=== PATIENT | female | born 1945 | race Caucasian/White ===

== ENCOUNTER 2019-11-08 10:42 | Emergency (ER) | payer OTHER ==
[~2019-11-08] VITALS: Ht 157.5 cm; Wt 104.3 kg
[~2019-11-08 10:42] MED LIST: AMOX1TAB5 PO; COZAAR25 MG; FIRST-OMEPR2 MG/1 ML; PERCOCET 5/3251 TAB PO; SIMVASTATIN40 MG
[2019-11-08] MEDS ORDERED: XARELTO20 MG (10:53)
== END 2019-11-08 16:54 | disposition home or self-care (01) ==
LOC: ER 10:42
DX: B34.9 Viral infection, unspecified (principal); Z20.828 Contact with and (suspected) exposure to other viral communicable diseases

== ENCOUNTER 2021-05-16 14:17 | Outpatient (CLI) | payer OTHER ==
[~2021-05-16 14:17] MED LIST changes: +XARELTO20 MG
== END 2021-05-16 14:30 | disposition home or self-care (01) ==
LOC: NUCLEAR 14:17
PROVIDERS: ATTEND Internal Medicine
DX: M81.0 Age-related osteoporosis without current pathological fracture (principal)

== ENCOUNTER 2021-07-04 07:37 | Outpatient (CLI) | payer OTHER | END 2021-07-04 07:38 | disposition home or self-care (01) | LOC: NUCLEAR 07:37 | PROVIDERS: ATTEND Internal Medicine | DX: I20.9 Angina pectoris, unspecified (principal); Z88.6 Allergy status to analgesic agent | CPT/HCPCS: 78452; 93017; A9500; J0153 ==

== ENCOUNTER 2021-07-17 08:15 | Outpatient (CLI) | payer OTHER | END 2021-07-17 08:27 | disposition home or self-care (01) | LOC: SONOGRAMA 08:15 | PROVIDERS: ATTEND Internal Medicine | DX: M25.511 Pain in right shoulder (principal) ==

== ENCOUNTER 2021-12-30 07:27 | Inpatient (IN) | payer OTHER ==
[~2021-12-30] VITALS: Ht 162.6 cm; Wt 115.7 kg
[2021-12-30] MEDS ORDERED: PANTOPRAZOLE SO40 MG PO (07:39)
[2021-12-30] MEDS ORDERED: ROSUVASTATIN CA10 MG PO (07:39)
[2021-12-30] MEDS ORDERED: TOPROL XL25 M1 PO (07:39)
[2021-12-30] MEDS ORDERED: PEPCID AC20 MG PO (07:39)
--- NOTE | 2021-12-30 07:43 | NUR ---
SE RECIBE PTE ALERTA Y ORIENTADO X3 CON ESPOSO. PTE VERBALIZA DOLOR ABDOMINAL Y ESTRENIMIENTO DESDE EL SABADO CON UN POCO DE EVACUACION TRAS USAR UN SUPOSITORIO, REFIERE "NO MUCHO". PTE REFIERE " DISTENCION ABDOMINAL". SE MARNI SV Y SE UBICA EN SABRINA.
--- NOTE | 2021-12-30 08:52 | NUR ---
SE ORIENTA PTE Y FAMILIAR SOBRE EL TRATAMIENTO ORDNEADO POR EL DR VANN PTE ALERTA Y ORIENTADO POR 3 SE REALIZAN MUESTRAS DE LABORTORIO Y MEDICAMENTOS ROOPA ORDENADO PTE SE MANTIENE EN OBSERVACION Y BAJO TRATAMIENTO EN ESPERA DE CT
--- NOTE | 2021-12-30 12:36 | NUR ---
PTE NO SE ENCUENTRA EN LA HABITACION PARA LA REALIZACION DE BLOOD CULTURE, ESTA EN ESTUDIO.
--- NOTE | 2021-12-30 13:37 | NUR ---
SE LE KALPESH CULTIVOS DE BRII A PTE. PENDIENTE CULTIVO DE ORINA Y ESCRETA LOS CUALES SE LE ENTREGA AMBOS ENVASES A PTE Y SE LE ORIENTA.
--- NOTE | 2021-12-30 15:51 | NUR ---
SE RECIBE PTE ALERTA Y ORIENTADA X3 EN SABRINA ACOMPANA[place] DE FAMILIAR. PTE CON H/L COLOCADO Y ANTIBIOTICO COLOCADO. PTE CONSULTADA CON MEDICINA INTERNA.
== END 2022-01-02 22:39 | disposition home or self-care (01) | DRG 377 ==
LOC: ER 07:27 → MEDJ 16:28
PROVIDERS: ADMIT Internal Medicine; ATTEND Internal Medicine
PROC: BW21YZZ Computerized Tomography (CT Scan) of Abdomen and Pelvis using Other Contrast (ICD-10-PCS; principal; 2021-12-30)
DX: K57.33 Diverticulitis of large intestine without perforation or abscess with bleeding (principal); A41.9 Sepsis, unspecified organism; I48.20 Chronic atrial fibrillation, unspecified; N39.0 Urinary tract infection, site not specified; D64.9 Anemia, unspecified; K44.9 Diaphragmatic hernia without obstruction or gangrene; K52.89 Other specified noninfective gastroenteritis and colitis; I11.9 Hypertensive heart disease without heart failure; D50.9 Iron deficiency anemia, unspecified; Z20.822 Contact with and (suspected) exposure to COVID-19

== ENCOUNTER 2022-03-23 08:32 | Emergency (ER) | payer OTHER ==
[~2022-03-23] VITALS: Ht 157.5 cm; Wt 117.9 kg
[~2022-03-23 08:32] MED LIST changes: +PANTOPRAZOLE SO40 MG PO; +PEPCID AC20 MG PO; +ROSUVASTATIN CA10 MG PO; +TOPROL XL25 M1 PO
[2022-03-23] MEDS ORDERED: ZITHROMAX200 MG PO (12:19)
== END 2022-03-23 12:25 | disposition home or self-care (01) ==
LOC: ER 08:32
DX: J06.9 Acute upper respiratory infection, unspecified (principal); Z88.6 Allergy status to analgesic agent; Z20.822 Contact with and (suspected) exposure to COVID-19

== ENCOUNTER 2023-12-09 13:19 | Outpatient (CLI) | payer OTHER ==
[~2023-12-09 13:19] MED LIST changes: +ZITHROMAX200 MG PO
== END 2023-12-09 13:21 | disposition home or self-care (01) ==
LOC: NUCLEAR 13:19
DX: M81.0 Age-related osteoporosis without current pathological fracture (principal)